=== PATIENT | male | born 1975 | race Caucasian/White ===

== ENCOUNTER → 2018-12-28 | Outpatient (CLI) | payer SELFPAY ==
[2018-12-28 10:26] VITALS: BMI 22.1
[2018-12-28 14:25] LABS: Anion Gap 5 (5-15); BUN 13 mg/dL (7-18); BUN/Creat Ratio 15.3 RATIO (10-20); Calcium,Total 9.3 mg/dL (8.5-10.1); Chloride 103 mmol/L (98-107); Cholesterol 187 mg/dL (200); Creatinine, Serum 0.85 mg/dL (0.70-1.30); EST Glomerular Filtration Rate 105 mL/min (>60); Est Glom Filt Rate - Afr Amer 127 mL/min (>60); Glucose 95 mg/dL (74-106); High Density Lipoprotein 42 mg/dL; Potassium 4.3 mmol/L (3.5-5.1); Sodium Level 138 mmol/L (136-145); Triglycerides 110 mg/dL; Very Low Density Lipoprotein 22 mg/dL (5-40)
== END | disposition home or self-care (01) ==
LOC: BIMLAB 10:58
PROVIDERS: PCP Family Medicine; Visit Provider Family Medicine
DX: I10 Essential (primary) hypertension (principal)
CPT/HCPCS: 36415; 80048; 80061

== ENCOUNTER 2021-05-19 12:14 | Day surgery (SDC) | payer OTHER, SELFPAY ==
[2021-05-19] VITALS (14 sets, daily range): BP systolic 130–168; BP diastolic 74–97; PULSE 35–100; RESP 14–20; TEMP 36.7–37.5; O2SAT 96–99; BMI 22.4
--- NOTE | 2021-05-19 12:40 | RAD_ITS ---
STUDY: X-RAY CHEST REASON FOR EXAM: Male, 45 years old. Dyspnea TECHNIQUE: Single AP portable view of the chest. COMPARISON: None. FINDINGS: EKG electrodes are seen. The lungs are clear and expanded. There is no demonstrated pleural abnormality. Normal size heart. Normal mediastinum and hema. Normal visualized pulmonary arteries. Normal visualized aortic arch and descending thoracic aorta. There are degenerative changes of the visualized thoracic spine. Normal visualized ribs, clavicles, and shoulders. There is no demonstrated abnormality of the visualized soft tissue structures of the upper abdomen. RAD/Chest 1 View (Portable) IMPRESSION: Normal x-ray examination of the chest. Electronically Signed: Eulalio Conrad MD at 13:32 EDT , Service support ,
[2021-05-19 13:01] LABS: International Normalized Ratio 1.2; Prothrombin Time (Protime)PT. 14.1 SECONDS (11.7-14.9)
[2021-05-19 13:02] LABS: Absolute Lymphocyte Count 1.03 X10^3/uL (0.83-4.51); Absolute Neutrophil Count 6.1 X10^3/uL (2.0-7.7); Basophil# 0.03 X10^3/uL; Basophil% 0.4 % (0-1); Eosinophil# 0.01 X10^3/uL; Eosinophils% 0.1 % (0-5); Hematocrit 43.2 % (40-54); Hemoglobin 14.1 g/dL (13.0-16.5); Lymphocyte # 1.03 X10^3/ul (0.83-4.51); Lymphocyte % 12.9 % (19-41); Mean Corp Hgb Conc 32.6 g/dL (32-36); Mean Corpuscular Hgb 29.6 pg (27.0-32.0); Mean Corpuscular Volume 90.6 fL (80-94); Monocyte# 0.76 X10^3/uL; Monocyte% 9.5 % (0-10); NRBC Flagged by Analyzer 0 % (0-5); Neutrophil # 6.12 X10^3/uL (2.7-7.7); Neutrophil % 76.7 % (47-70); Platelet Count 351 K/mm3 (150-450); RBC Distribution Width CV 12.3 % (11.6-14.6); RBC Distribution Width SD 40.2 fl (35.1-43.9); Red Blood Count 4.77 M/mm3 (4.6-6.2)
[2021-05-19 13:10] LABS: Anion Gap 6 (5-15); BUN 17 mg/dL (7-18); BUN/Creat Ratio 17.1 RATIO (10-20); Chloride 104 mmol/L (98-107); Creatinine, Serum 0.99 mg/dL (0.70-1.30); EST Glomerular Filtration Rate 87 mL/min (>60); Est Glom Filt Rate - Afr Amer 105 mL/min (>60); Glucose 112 mg/dL (74-106); Magnesium 2.3 mg/dL (1.6-2.6); Potassium 4.2 mmol/L (3.5-5.1); Sodium Level 137 mmol/L (136-145); Thyroid Stim Hormone (TSH) 2.89 uIU/mL (0.358-3.74); Troponin-I HS 8 pg/mL (3.0-78.0)
--- NOTE | 2021-05-19 13:42 | NURSING ---
ROUTE SALES REPRESENTATIVE DR PARISH COMPLETE HEART BLOCK
--- NOTE | 2021-05-19 14:50 | ECHOD_ITS ---
Reason For Study: Arrhythmia Procedure This was a 2D Doppler, Color Flow transthoracic echocardiogram. Portable in Infrastructure Project Manager. Left Ventricle Normal LV size. Left ventricular systolic function is normal. The estimated ejection fraction is 60 %. No regional wall motion abnormalities noted. Right Ventricle Normal RV size. Normal systolic function. Atria The left atrium is mildly enlarged. Normal right atrium. Aortic Valve Trisinus/trileaflet aortic valve. Pulmonic Valve Normal pulmonic valve. Great Vessels Normal aortic root. The pulmonary artery is normal size. Normal inferior vena cava. Pericardium/Pleural No pericardial effusion. MMode/2D Measurements & Calculations LVIDd: 4.7 cm IVSd: 0.97 cm LA dimension: 3.0 cm LVIDs: 3.3 cm LVPWd: 1.3 cm FS: 30.8 % LAV(MOD-bp): 64.1 ml LA A4 area: 23.0 cm2 RA A4 area: 19.6 cm2 LAV(MOD-bp) Indexed: 32.7 ml/m2 LAV(MOD-sp2): 51.3 ml LAV(MOD-sp4): 74.5 ml Time Measurements MV dec time: 0.26 sec Doppler Measurements & Calculations MV E max sukhdev: 107.4 cm/sec Lat Peak E' Sukhdev: 8.3 cm/sec Med Peak E' Sukhdev: 10.7 cm/sec MV A max sukhdev: 93.5 cm/sec E/E' lat: 12.9 E/E' med: 10.0 MV E/A: 1.1 MV V2 max: 147.7 cm/sec MV P1/2t max sukhdev: 148.8 cm/sec Ao V2 max: 177.1 cm/sec MV max P.7 mmHg MV P1/2t: 106.5 msec Ao max P.5 mmHg MV V2 mean: 62.4 cm/sec MV mean P.0 mmHg MV dec slope: 409.2 cm/sec2 MV V2 VTI: 57.6 cm MVA(P1/2t): 2.1 cm2 LV V1 max: 147.1 cm/sec PA V2 max: 143.4 cm/sec LV V1 max P.7 mmHg ECHO/Echo Complete Interpretation Summary Normal LV size. Left ventricular systolic function is normal. The estimated ejection fraction is 60 %. The left atrium is mildly enlarged. Structurally normal valves. Ordering Physician: Obed Valencia Referring Physician: Abbey Hardwick BYPRODUCTS MAKERMargret Performed By: Sher Rapp RCS
--- NOTE | 2021-05-19 16:22 | EX.ED.DYSGE1 ---
HPI History of Present Illness Chief Complaint: Shortness of Breath Narrative Narrative: Patient is a 45-year-old male who reports no significant past medical or surgical issues.He states over the past 5 to 7 days he has noticed shortness of breath with any type of exertion. He states he went and saw a family doctor today who did an EKG and told him his heart rhythm was abnormal and sent him to the hospital for evaluation. Patient denies any previous history of heart dysrhythmia and he denies any recent nausea vomiting or diarrhea or new medications [facility] Medical History (Updated 05/19/21 @ 16:[address] Florentin Metzger DO) Frequent headaches High blood pressure Wears glasses Medical History no medical history Home Medications BLACK GARLIC PO 12/28/18 [History Last Taken Unknown] lisinopril 10 mg tablet 10 mg PO DAILY #90 tab 12/28/18 [Rx Last Taken Unknown] Allergy/AdvReac Type Severity Reaction Status Date / Time No Known Allergies Allergy Unverified 12/28/18 10:19 Family History Grandfather CHF (congestive heart failure) Father Heart disease Brother Myocardial infarction Social History (Updated 12/28/18 @ 11:[address] Timbo Adan DO) Smoking Status: Never smoker alcohol intake: current substance use type: does not use what type of physical activity do you participate in: none ROS ROS ED Constitutional Constitutional ED: Denies chills or fever(s) ENT ENT ED: Denies sore throat Cardiovascular Cardiovascular: Denies chest pain, palpitations or racing heartbeat Respiratory/Chest Respiratory/Chest: Reports dyspnea; Denies cough Gastrointestinal Gastrointestinal: Denies abdominal pain, diarrhea, nausea or vomiting Genitourinary Genitourinary ED: Denies dysuria Musculoskeletal Musculoskeletal: Denies myalgias Integumentary Denies rash Neurologic Neurologic: Denies headache(s) Hematologic/Lymphatic Hematologic/Lymphatic: Denies easy bleeding or easy bruising EXAM Physical Exam Const Vital Signs: 05/19/21 12:15 05/19/21 12:48 05/19/21 13:44 Temperature 98.1 F 98.1 F Temperature Source Temporal Oral Pulse Rate 36 L 35 L 35 L Respiratory Rate 20 H 19 H 19 H Blood Pressure 168/93 H 162/74 H 162/74 H Blood Pressure Mean 118 103 103 Pulse Ox 99 99 Oxygen Delivery Method Room Air Room Air Positive well nourished and well developed General Appearance ED: well developed HEENT Reports moist mucous membranes Eyes PERRL and EOMs intact bilaterally Neck supple Chest Wall palpation of chest normal Resp normal respiratory effort and clear to auscultation bilaterally Cardio Rate: other Other Details: Bradycardic rate with irregular rhythm GI normal to inspection, nondistended, normoactive bowel sounds, non-tender and non-distended GI Narrative: No pulsatile mass or voluntary guarding Auscultation: normoactive bowel sounds Palpation: soft Back/Spine no CVA tenderness Extremity normal to inspection Extremity Narrative: No asymmetric edema no pitting edema negative Homans' sign bilaterally Neuro oriented x3 and CN's II-XII intact bilaterally Sensorium / Orientation: alert Psych mental status grossly normal Skin no rashes or lesions noted MDM MDM MDM Narrative Medical decision making narrative: Patient presented to the ER in a bradycardic irregular rhythm which EKG confirmed was complete heart block. Therefore he had external pacer pads placed but overall was awake and alert with stable vitals other than his bradycardic rate. The case was discussed with cardiology who agrees about the heart block and recommends that patient be taken to surgery for pacemaker placement at this time. The surgery was discussed with the patient and he does agree to placement and therefore will be admitted for surgical placement of a pacemaker to correct his complete heart block at this time. Lab Data Labs: Laboratory Results - last 24 hr 05/19/21 05/19/21 05/19/21 12:35 12:35 12:35 WBC 8.0 RBC 4.77 Hgb 14.1 Hct 43.2 MCV 90.6 MCH 29.6 MCHC 32.6 RDW Std Deviation 40.2 RDW Coeff of Rahul 12.3 Plt Count 351 MPV 11.0 Immature Gran % (Auto) 0.400 Neut % (Auto) 76.7 H Lymph % (Auto) 12.9 L Stark % (Auto) 9.5 Eos % (Auto) 0.1 Baso % (Auto) 0.4 Absolute Neuts (auto) 6.1 Absolute Lymphs (auto) 1.03 Nucleated RBC % 0 PT 14.1 INR 1.2 APTT 33.0 Sodium 137 Potassium 4.2 Chloride 104 Carbon Dioxide 27.0 Anion Gap 6 BUN 17 Creatinine 0.99 Estim Creat Clear Calc 100.80 Est GFR (MDRD) Af Amer 105 Est GFR (MDRD) Non-Af 87 BUN/Creatinine Ratio 17.1 Glucose 112 H Calcium 9.0 Magnesium 2.3 Troponin I High Sens 8 TSH 2.89 Radiography Diagnostic Testing: Radiology Impression Chest X-Ray 05/19/21 12:40 IMPRESSION: Normal x-ray examination of the chest. Electronically Signed: Eulalio Conrad MD at 13:32 EDT , Service support , Critical Care Time Critical Care Time: Yes Critical care time (excluding procedures): - (31 Minutes) Discharge Plan Dx/Rx/DC Orders Clinical Impression: Complete heart block Disposition Disposition: Acute Care [facility] Discharge Date/Time: 05/19/21 13:45
--- NOTE | 2021-05-19 17:21 | CON.PCM.CA_ITS ---
Assessment & Plan Assessment/Plan (1) Complete heart block: PLAN: He presents with a new finding of complete heart block and though his blood pressure appears to be stable at this time it is felt that he does need a permanent pacemaker implantation. Risk benefits alternatives were discussed with him and his and they understand and agree to proceed. He will have an MRI compatible pacemaker put in so he can undergo an MRI to screen for sarcoid or any infiltrative disease. In the meantime Lyme titer antibodies would also be obtained. Thank you for allowing me to participate in the care of your patient. Please don't hesitate to call if any issues arise. HPI Consult Data Date of Consult: 05/19/21 HPI Narrative HPI Narrative: MRATHA SARABIA, is a 45 M who presents to the emergency room with weakness which has been going on for approximately a week. He denies any chest pain or shortness of breath or paroxysmal nocturnal dyspnea or pedal edema he has had no neck arm or jaw discomfort to suggest angina. He thought he would get better he took some aspirin and this afternoon he presented to the emergency room. He was noted to be in complete heart block with a ventricular escape rhythm of approximately 35 bpm.He specifically denies any tick bite or family history of cardiomyopathy. He does have a brother who has had coronary artery disease. He has not noted any pedal edema. [facility] Medical History Frequent headaches High blood pressure Wears glasses Medical History no medical history Home Medications BLACK GARLIC PO 12/28/18 [History Last Taken Unknown] lisinopril 10 mg tablet 10 mg PO DAILY #90 tab 12/28/18 [Rx Last Taken Unknown] Allergy/AdvReac Type Severity Reaction Status Date / Time No Known Allergies Allergy Unverified 12/28/18 10:19 Family History Grandfather CHF (congestive heart failure) Father Heart disease Brother Myocardial infarction Social History Smoking Status: Never smoker alcohol intake: current substance use type: does not use what type of physical activity do you participate in: none ROS Constitutional Constitutional: Denies fever(s) or weight loss Eyes Eyes: Reports systems reviewed and no addt'l complaints, except as documented ENT HEENT: Reports systems reviewed and no addt'l complaints, except as documented Cardiovascular Cardiovascular: Denies chest pain at rest, chest pain with activity, dyspnea at rest, dyspnea on exertion, edema, palpitations or paroxysmal nocturnal dyspnea Respiratory/Chest Respiratory/Chest: Denies dyspnea on exertion, productive cough, shortness of breath at rest or shortness of breath with exertion Gastrointestinal Gastrointestinal: Denies change in bowel habits, nausea, vomiting or weight changes Genitourinary Genitourinary: Denies difficulty urinating Musculoskeletal Musculoskeletal: Denies joint stiffness or muscle weakness Integumentary Integumentary: Denies lesions Neurologic Neurologic: Denies dizziness or syncope Psychiatric Psychiatric: Denies anxiety Endocrine Endocrinology: Denies excessive sweating or fatigue Hematologic/Lymphatic Hematologic/Lymphatic: Denies anemia Allergic/Immunologic Allergic/Immunologic: Denies seasonal rhinorrhea Physical Exam Const alert, oriented x3 and no apparent distress General Appearance: cooperative HEENT hearing grossly normal bilaterally Head and Scalp: atraumatic Eyes EOMs intact bilaterally Neck General: normal visual inspection Chest inspection of chest normal and palpation of chest normal Resp normal respiratory effort Auscultation: clear to auscultation bilaterally Cardio regular rate, regular rhythm, S1 normal heart sound and S2 normal heart sound Jugular Venous Distention: JVD GI normal to inspection, nondistended, normoactive bowel sounds Extremity normal capillary refill and no pedal edema Peripheral Pulses: Yes pulses 2+ throughout and femoral pulses present Skin no rashes or lesions noted Neuro oriented x3 and CN's II-XII intact bilaterally Psych Appearance: grossly normal and appropriate Objective Data Vital Signs: Vital Signs Temp Pulse Resp BP Pulse Ox 98.1 F 35 L 19 H 162/74 H 99 05/19/21 13:44 05/19/21 13:44 05/19/21 13:44 05/19/21 13:44 05/19/21 13:44 Oxygen Delivery Method Room Air Weight: 165 lb Body Mass Index (BMI) 22.4 Lab / Micro Data Result Diagrams: 05/19/21 12:35 05/19/21 12:35 Labs: Laboratory Results - last 24 hr 05/19/21 12:35: WBC 8.0, RBC 4.77, Hgb 14.1, Hct 43.2, MCV 90.6, MCH 29.6, MCHC 32.6, RDW Std Deviation 40.2, RDW Coeff of Rahul 12.3, Plt Count 351, MPV 11.0, Immature Gran % (Auto) 0.400, Neut % (Auto) 76.7 H, Lymph % (Auto) 12.9 L, Howell % (Auto) 9.5, Eos % (Auto) 0.1, Baso % (Auto) 0.4, Absolute Neuts (auto) 6.1, Absolute Lymphs (auto) 1.03, Nucleated RBC % 0 05/19/21 12:35: PT 14.1, INR 1.2, APTT 33.0 05/19/21 12:35: Sodium 137, Potassium 4.2, Chloride 104, Carbon Dioxide 27.0, Anion Gap 6, BUN 17, Creatinine 0.99, Estim Creat Clear Calc 100.80, Est GFR (MDRD) Af Amer 105, Est GFR (MDRD) Non-Af 87, BUN/Creatinine Ratio 17.1, Glucose 112 H, Calcium 9.0, Magnesium 2.3, Troponin I High Sens 8, TSH 2.89 Micro: Microbiology 05/19/21 13:55 Nasal Secretion SARS-CoV-2 Antigen (Rapid) - Final Cardiology Labs/Tests 05/19/21 12:35: WBC 8.0, RBC 4.77, Hgb 14.1, Hct 43.2, MCV 90.6, MCH 29.6, MCHC 32.6, Plt Count 351, MPV 11.0, Immature Gran % (Auto) 0.400, Neut % (Auto) 76.7 H, Lymph % (Auto) 12.9 L, Howell % (Auto) 9.5, Eos % (Auto) 0.1, Baso % (Auto) 0.4, Absolute Neuts (auto) 6.1, Nucleated RBC % 0 05/19/21 12:35: PT 14.1, INR 1.2, APTT 33.0 05/19/21 12:35: Sodium 137, Potassium 4.2, Chloride 104, Carbon Dioxide 27.0, Anion Gap 6, BUN 17, Creatinine 0.99, Est GFR (MDRD) Af Amer 105, Est GFR (MDRD) Non-Af 87, BUN/Creatinine Ratio 17.1, Glucose 112 H, Calcium 9.0, Magnesium 2.3 Rhythm: EKG: A-V dissociation with complete heart block a rate of 35 bpm ECHO: Overall preserved left ventricular systolic function Stress Test: Cardiac Cath: PCI: CT Surgery: Holter monitor: EPS: PPM: CXR: Chest CT Scan: Radiography Diagnostic Testing: Radiology Impression Chest X-Ray 05/19/21 12:40 IMPRESSION: Normal x-ray examination of the chest. Electronically Signed: Eulalio Conrad MD at 13:32 EDT , Service support ,
--- NOTE | 2021-05-19 17:25 | CL.IE_ITS ---
Patient: MARTHA SARABIA Study Date: 05/19/2021 Performing: Obed Valencia MD : [id number] Age: 45 Gender: male PROCEDURES PERFORMED [id number] PACER INSERT+DUAL LEADS INDICATIONS Atrial fibrillation and complete heart block PROCEDURE DETAILS The patient was brought to the Catheterization Lab in the postabsorptive nonsedated state. Infor med consent was obtained prior to the procedure. Local anesthetic was given subcutaneously to the le ft subclavian region with Lidocaine 2%. Access was achieved and a guidewire was advanced into the lef t subclavian vein. Incision was made to the left subclavicular area. PPM ventricular lead was inserte d / positioned to right ventricular. PPM atrial lead was inserted / positioned to the right atrial ap pendage. PPM ventricular lead testing performed. PPM ventricular lead testing performed. PPM atrial l ead testing performed. The Atrial lead sutured in place with 2-0 Silk. The Ventricular PM lead suture d in place with 2-0 Silk. PPM generator was attached to the lead(s) and inserted into the pocket. Dev ice pocket was irrigated with Ancef 1gm antibiotic. PPM generator was then interrogated by the progra mmer. Subcutaneous closure was completed with 3-0 Vicryl. Skin closure was completed with 4-0 Vicryl. Steri-strips applied to Lt chest area. The patient tolerated the procedure well. Estimated Blood Loss: 10 ml's IMPLANTED / EX-PLANTED DEVICES IMPLANTED DEVICE(S): PPM Ventricular lead - Licensed Direct Entry Midwife: Medtronic, Model # 4076-58CM , Serial # [id number] PPM Atrial lead - Licensed Direct Entry Midwife: Medtronic, Model # 4076-52CM , Serial # [id number] PPM Generator - Licensed Direct Entry Midwife: Medtronic, Model # Samantha XT DR FLAQUITA Kohler [id number] , Serial # [id number] DEVICE PARAMETERS ATRIAL LEAD PARAMETERS: P wave- 1.5 (mV) Current- 0 (mA) threshold- 0.875 (V) impedence- 627 (OHMS) RCT- VENTRICULAR LEAD PARAMETERS: R wave- 13.125 (mV) Current- 0 (mA) threshold- 1.0 (V) impedence- 760 (OHMS) DEVICE PARAMETERS: Mode- DDD Lower rate- 60 Upper rate- 170 CONCLUSIONS / RECOMMENDATIONS Device Conclusions: Successful implantation of a dual chamber pacemaker Device Recommendations: Follow up with Primary Care Physician PROCEDURE MEDICATIONS Versed 1 mg IV Fentanyl 50 mcg IV Versed 1 mg IV Fentanyl 50 mcg IV Versed 1 mg IV Fentanyl 25 mcg IV Oxygen: 2 L/min via nasal cannula Ancef 2 Gm IV @ 05/19/2021 16:09:45 Signed By Obed Valencia MD On 05/19/2021 17:23:33 Obed Valencia MD
--- NOTE | 2021-05-19 17:25 | EKG12_ITS ---
Test Reason : BRADYCARDIA Blood Pressure : / mmHG Vent. Rate : 029 BPM Atrial Rate : 113 BPM P-R Int : 000 ms QRS Dur : 176 ms QT Int : 582 ms P-R-T Axes : 070 -64 045 degrees QTc Int : 404 ms Complete Heart Block Left axis deviation Left bundle branch block Abnormal ECG Confirmed by МАРИНА MCCULLOUGH, TJ ([id number]), society editor CHARY BOYCE ([id number]) on 05/20/2021 2:06:38 PM Referred By: EDGARD Confirmed By:TJ PARISH MD
--- NOTE | 2021-05-19 18:46 | EKG12_ITS ---
Test Reason : Blood Pressure : / mmHG Vent. Rate : 089 BPM Atrial Rate : 089 BPM P-R Int : 180 ms QRS Dur : 184 ms QT Int : 436 ms P-R-T Axes : 053 -81 050 degrees QTc Int : 530 ms Atrial-sensed ventricular-paced rhythm Abnormal ECG When compared with ECG of 19-MAY-2021 12:25, MANUAL COMPARISON REQUIRED, DATA IS UNCONFIRMED Confirmed by МАРИНА MCCULLOUGH, TJ ([id number]), clinical editor AZUCENA GIRON ([id number]) on 05/23/2021 9:48:57 AM Referred By: МАРИНА Confirmed By:TJ PARISH MD
[2021-05-20 01:00] VITALS: BP 124/84; PULSE 100; RESP 18; TEMP 38.3; O2SAT 96
[2021-05-20 03:35] VITALS: PULSE 88
--- NOTE | 2021-05-20 05:55 | RAD_ITS ---
STUDY: X-RAY CHEST REASON FOR EXAM: Male, 45 years old. Post permanent ICD/Pacemaker -- inspiration/expiration. Arms Down. Wet read to MD TECHNIQUE: Single AP portable view of the chest. Inspiratory expiratory studies were obtained. COMPARISON: May 19, 2021 chest x-ray FINDINGS: The left-sided pacemaker. Leads overlying the right atrium and ventricle. The lungs are clear and expanded. There is no demonstrated pleural abnormality. Normal size heart. Normal mediastinum and hema. Normal visualized pulmonary arteries. Normal visualized aortic arch and descending thoracic aorta. There are diffuse degenerative changes of the visualized thoracic spine. Normal visualized ribs, clavicles, and shoulders. There is no demonstrated abnormality of the visualized soft tissue structures of the upper abdomen. RAD/Chest 3 View IMPRESSION: Minimal degenerative change. No visualized pneumothorax. Left-sided pacer Electronically Signed: Crystal Wang MD at 6:06 EDT Tel , Service support ,
[2021-05-20 05:57] VITALS: BP 123/81; PULSE 91; RESP 16; TEMP 37; O2SAT 95
[2021-05-20 07:00] VITALS: PULSE 89
--- NOTE | 2021-05-20 08:25 | PCM.PN.CARD ---
Subjective Subjective Patient seen and evaluated. Appears to be doing well. No complaints at this time. Objective Data Vital Signs: Vital Signs Temp Pulse Resp BP Pulse Ox 98.6 F 89 16 123/81 H 95 05/20/21 05:57 05/20/21 07:00 05/20/21 05:57 05/20/21 05:57 05/20/21 05:57 Oxygen Delivery Method Room Air Weight: 165 lb Body Mass Index (BMI) 22.4 Intake & Output: Intake and Output for Last 24 Hours 05/18/21 05/19/21 05/20/21 23:59 23:59 23:59 Intake Total 360 / 360 240 / 240 Output Total 375 / 375 975 / 975 Balance -15 / -15 -735 / -735 Lab / Micro Data Result Diagrams: 05/19/21 12:35 05/19/21 12:35 Labs: Laboratory Results - last 24 hr 05/19/21 12:35: WBC 8.0, RBC 4.77, Hgb 14.1, Hct 43.2, MCV 90.6, MCH 29.6, MCHC 32.6, RDW Std Deviation 40.2, RDW Coeff of Rahul 12.3, Plt Count 351, MPV 11.0, Immature Gran % (Auto) 0.400, Neut % (Auto) 76.7 H, Lymph % (Auto) 12.9 L, Oxford % (Auto) 9.5, Eos % (Auto) 0.1, Baso % (Auto) 0.4, Absolute Neuts (auto) 6.1, Absolute Lymphs (auto) 1.03, Nucleated RBC % 0 05/19/21 12:35: PT 14.1, INR 1.2, APTT 33.0 05/19/21 12:35: Sodium 137, Potassium 4.2, Chloride 104, Carbon Dioxide 27.0, Anion Gap 6, BUN 17, Creatinine 0.99, Estim Creat Clear Calc 100.80, Est GFR (MDRD) Af Amer 105, Est GFR (MDRD) Non-Af 87, BUN/Creatinine Ratio 17.1, Glucose 112 H, Calcium 9.0, Magnesium 2.3, Troponin I High Sens 8, TSH 2.89 Micro: Microbiology 05/19/21 13:55 Nasal Secretion SARS-CoV-2 Antigen (Rapid) - Final Cardiology Labs/Tests 05/19/21 12:35: WBC 8.0, RBC 4.77, Hgb 14.1, Hct 43.2, MCV 90.6, MCH 29.6, MCHC 32.6, Plt Count 351, MPV 11.0, Immature Gran % (Auto) 0.400, Neut % (Auto) 76.7 H, Lymph % (Auto) 12.9 L, Oxford % (Auto) 9.5, Eos % (Auto) 0.1, Baso % (Auto) 0.4, Absolute Neuts (auto) 6.1, Nucleated RBC % 0 05/19/21 12:35: PT 14.1, INR 1.2, APTT 33.0 05/19/21 12:35: Sodium 137, Potassium 4.2, Chloride 104, Carbon Dioxide 27.0, Anion Gap 6, BUN 17, Creatinine 0.99, Est GFR (MDRD) Af Amer 105, Est GFR (MDRD) Non-Af 87, BUN/Creatinine Ratio 17.1, Glucose 112 H, Calcium 9.0, Magnesium 2.3 Rhythm: EKG: ECHO: Stress Test: Cardiac Cath: PCI: CT Surgery: Holter monitor: EPS: PPM: CXR: Chest CT Scan: Radiography Diagnostic Testing: Radiology Impression Chest X-Ray 05/19/21 12:40 IMPRESSION: Normal x-ray examination of the chest. Electronically Signed: Eulalio Conrad MD at 13:32 EDT , Service support , Echocardiogram 05/19/21 14:50 Interpretation Summary Normal LV size. Left ventricular systolic function is normal. The estimated ejection fraction is 60 %. The left atrium is mildly enlarged. Structurally normal valves. Ordering Physician: Obed Valencia Referring Physician: Abbey Hardwick SOCIOLOGY RESEARCH ASSISTANT-C Performed By: Sher Rapp RCS Chest X-Ray 05/20/21 05:55 IMPRESSION: Minimal degenerative change. No visualized pneumothorax. Left-sided pacer Electronically Signed: Crystal Wang MD at 6:06 EDT Tel , Service support , Physical Exam Const alert, oriented x3 and no apparent distress General Appearance: cooperative HEENT hearing grossly normal bilaterally Head and Scalp: atraumatic Eyes EOMs intact bilaterally Neck General: normal visual inspection Chest inspection of chest normal and palpation of chest normal Resp normal respiratory effort Auscultation: clear to auscultation bilaterally Cardio regular rate, regular rhythm, S1 normal heart sound and S2 normal heart sound Jugular Venous Distention: JVD GI normal to inspection, nondistended, normoactive bowel sounds Extremity normal capillary refill and no pedal edema Peripheral Pulses: Yes pulses 2+ throughout and femoral pulses present Skin no rashes or lesions noted Neuro oriented x3 and CN's II-XII intact bilaterally Psych Appearance: grossly normal and appropriate Assessment & Plan Assessment/Plan (1) Complete heart block: PLAN: Patient is status post permanent pacemaker implantation. Appears to be doing well. Recommendations are for him to continue follow-up in our office. Chest x-ray and pacer check today are noted to be stable.
--- NOTE | 2021-05-20 08:27 | DCINST_ITS ---
Discharge Instructions Diet Discharge Diet: No restrictions (as you feel able. No excessive stretching. No lifting your arm over your head (keep elbow below shoulder level) until seen for your pacemaker check. Do not lift your elbow away from your side until you are seen for your first visit. Keep the arm sling on if it helps remind you not to lift your arm.) Activity Additional Activity Instructions:: May shower or bathe on []. Do not scrub the incision or soak in the tub. Just wash with soap and let the water run over the incision. Gently pat dry with towel. Medications: Take your pain medication as directed. Refer to your discharge instruction sheet for a list of medications you are to take. Dressing / Incision Call your doctor if your incision/area has: Continuous Slow Oozing, Sudden Increased Bleeding, Increased Pain/ Swelling, Increased Redness, Foul Smelling Discharge and Swelling at the incision site Call your doctor if you observe: Fever of 101 or Higher, Shortness of breath, Dizziness, Fainting spells, Swelling in the ankles, Chest pain, Prolonged hiccupping and Increased palpitations (irregular heartbeat) Additional Dressing/Incision Instructions:: When dressing is removed, wash and dry incision. Keep covered with a light bandage if it is rubbing against your clothing. Do not cover the incision with an airtight bandage. Change the bandage daily. Do not remove steri strips. The strips will fall off on their own. Follow Up Care Please Follow Up With: Obed Valencia MD When: Call [phone] for follow up. Pacemaker clinic on June 05 at 8:30 AM Test Results: Test results from this visit will be discussed in further detail at your follow-up appointment, if applicable. Discharge Plan Admission Attending Provider: Obed Valencia Primary Care Provider: Abbey Hardwick Discharge Orders/Prescriptions Prescriptions: No Action BLACK GARLIC PO RF: 0 lisinopril 10 mg tablet 10 mg PO DAILY Qty: 90 RF: 3 Referrals / Follow Up: Abbey Hardwick, [facility] [Primary Care Provider] - Disposition Discharge Orders: Discharge Patient (Routine); Ordered 05/20/21 Ordered By: Dr. Obed Valencia
--- NOTE | 2021-05-20 09:08 | PHA.DC.MR ---
Pharmacy Service has performed discharge medication reconciliation for this patient. The patient's discharge medication list was reviewed for discrepancies and discrepancies were resolved. Home Medications BLACK GARLIC PO 12/28/18 lisinopril 10 mg tablet 10 mg PO DAILY #90 tab 12/28/18
[2021-05-20 09:55] VITALS: BP 122/86; PULSE 90; RESP 18; TEMP 37.1; O2SAT 97
[2021-05-20 10:00] VITALS: O2SAT 97
--- NOTE | 2021-05-23 11:45 | PCM.OPRPT ---
Problems Associated Problem List Diagnoses (1) Complete heart block: Report of Operation Date of Procedure: 05/19/21 Pre-Operative Diagnosis: Complete heart block Post-Operative Diagnosis: Complete heart block Surgery/Procedure Performed:: Temporary pacemaker placement Description of Surgical Findings:: Right common femoral vein access was obtained in the 7 [place] sheath was inserted. Balloon tipped temporary pacemaker was placed in the RV under fluoroscopic guidance. It was capturing at 2 mA. It was set at 10 mA and a rate of 60 bpm. Patient tolerated the procedure well. There were no complications. Complications None
[2021-05-27 04:29] LABS: Lyme IgG P18 Ab Absent (.); Lyme IgG P23 Ab Absent (.); Lyme IgG P28 Ab Absent (.); Lyme IgG P30 Ab Absent (.); Lyme IgG P39 Ab Absent (.); Lyme IgG P41 Ab Present (.); Lyme IgG P45 Ab Absent (.); Lyme IgG P58 Ab Absent (.); Lyme IgG P66 Ab Absent (.); Lyme IgG P93 Ab Absent (.); Lyme IgM P23 Ab Present (.); Lyme IgM P39 Ab Present (.)
[2021-05-27 14:41] LABS: Lyme IgG WB Interpretation Negative (.); Lyme IgM WB Interpretation Positive (.)
[2021-05-27 14:47] LABS: Lyme IgM P41 Ab Present (.)
== END 2021-05-20 08:26 | disposition home or self-care (01) ==
LOC: ED 12:53 → CLSP 13:44 → PCU 05-21 11:48
PROVIDERS: Emergency Provider Emergency Medicine; PCP Nurse Practitioner Family; Visit Provider Internal Medicine Cardiovascular Disease
DX: I44.2 Atrioventricular block, complete (principal); I48.91 Unspecified atrial fibrillation; I10 Essential (primary) hypertension; Z79.899 Other long term (current) drug therapy; Z82.49 Family history of ischemic heart disease and other diseases of the circulatory system
CPT/HCPCS: 33208; 33210; 71045; 71047; 80048; 83735; 84443; 84484; 85025; 85610; 85730; 86617; 87426; 93005; 93306; 99152; 99153; 99283; J7030; J7040; J7050; A4216; C1894